=== PATIENT | female | born 1935 | race Asian ===

== ENCOUNTER 2016-11-08 15:56 | Emergency (ER) | payer OTHER, MEDICARE, BC ==
--- NOTE | ~2016-11-08 | CR150 ---
[facility] A Service of [facility] & [facility] RADIOLOGY TEXT RESULTS PATIENT: YAZAN CRAWFORD LOCATION: [facility] : 34 UNIT #: [id number] AGE: [address]: Juan Christina MD SEX: F ORDER DR: [id number] [facility] [address] [place], [place] [address] [id number] E MR#: [id number] Acc #: [id number] NAME: YAZAN CRAWFORD : 1935 SEX: F STUDY DATE/TIME: 11/08/2016 16:26 UNIT: [facility] ROOM: STUDY DESCRIPTION: CR Hip Min 2 Views Lt Attending Physician: Juan Christina M.D. Ordering Physician: Juan Christina M.D. Primary Care Physician: No Primary Care Physician MEDICAL IMAGING REPORT This report is preliminary unless electronic signature is present EXAM Left hip and pelvis HISTORY 81-year-old female fell backwards yesterday, complains of left hip pain, low back pain, weakness. FINDINGS AP pelvis and frog lateral view of the left hip demonstrates no definite fracture or dislocation. Osteopenia. Degenerative disc disease lower lumbar spine. Calcifications are seen in the left pelvis possibly related to calcified fibroid. Arthritic changes seen in the SI joints. Soft tissues unremarkable. IMPRESSION 1. Osteopenia, no definite acute hip or pelvic fracture. 2. Arthritic changes both SI joints and lower lumbar spine. Dictated by... Slava Brady M.D. THIS IS AN ELECTRONICALLY VERIFIED REPORT Slava Brady M.D. at 11/09/2016 12:28 PM ROXANNA/zac TD: 11/08/2016 21:30 JOB #: [id number] MEDICAL IMAGING REPORT Page 1 of 1 COPY
--- NOTE | ~2016-11-08 | CR181 ---
[facility] A Service of [facility] RADIOLOGY TEXT RESULTS PATIENT: YAZAN CRAWFORD LOCATION: [facility] : 34 UNIT #: [id number] AGE: [address]: Juan Christina MD SEX: F ORDER DR: [id number] [facility] [address] [place], [place] [address] [id number] E MR#: [id number] Acc #: [id number] NAME: YAZAN CRAWFORD : 1935 SEX: F STUDY DATE/TIME: 11/08/2016 16:27 UNIT: [facility] ROOM: STUDY DESCRIPTION: CR Lumbar Spine 2 or 3 Views Attending Physician: Juan Christina M.D. Ordering Physician: Juan Christina M.D. Primary Care Physician: No Primary Care Physician MEDICAL IMAGING REPORT This report is preliminary unless electronic signature is present EXAM Lumbar spine, 3 views. DATE OF EXAM 11/08/2016 INDICATIONS 81-year-old female with back pain after falling yesterday. COMPARISON Comparison with 07/11/2015. FINDINGS There is a compression deformity of L1 which is new compared with the most recent imaging study of the lumbar spine which was from a CT of the abdomen 01/15/2016. There has been a previous vertebroplasty of L2. L3 through L5 vertebral body heights are normal. Multilevel facet arthropathy. Osteopenia. IMPRESSION There is a L1 compression deformity new since January of 2016, but the exact date is indeterminate. If the patient has acute low back pain symptoms referable to this region with tenderness over the L1 area, this is probably an acute fracture. If awaiting clinical management, further imaging evaluation with MRI would be helpful. Dictated by... Adithya Brady M.D. THIS IS AN ELECTRONICALLY VERIFIED REPORT Adithya Brady M.D. at 11/09/2016 9:09 AM ARS/jt [facility] A Service of [facility] RADIOLOGY TEXT RESULTS PATIENT: YAZAN CRAWFORD LOCATION: [facility] : 34 UNIT #: [id number] AGE: [address]: Juan Christina MD SEX: F ORDER DR: TD: 11/08/2016 21:54 JOB #: [id number] MEDICAL IMAGING REPORT Page 1 of 1 COPY
[~2016-11-08 15:56] MED LIST: ARTHRITIS MED; BENADRYL PO; BP MED; BP PILL; CERTAGEN PO; GLUCOPHAGE850 MG PO; HYDROCODONE-APA1 T30 PO; LISINOPRIL PO; LISINOPRIL10 MG PO; LISINOPRIL20 MG PO; LORTAB 10-3251 EACH PO; LORTAB 7.5-5001 TAB PO; MACROBID100 MG PO; MEGESTROL ACETA40 MG PO; METFORMIN HCL500 M1 PO; MIRALAX17 GM PO; OMEPRAZOLE40 MG PO; PERCOCET PO; PREDNISONE PO; PREDNISONE5 M1 PO; REMERON15 MG PO; SENOKOT S1 TAB PO; TOBRADEX ST EYE5 ML OP
== END 2016-11-08 17:50 | disposition home or self-care (01) ==
LOC: CED 15:56
DX: S32.018A Other fracture of first lumbar vertebra, initial encounter for closed fracture (principal); I10 Essential (primary) hypertension; E11.9 Type 2 diabetes mellitus without complications; W01.0XXA Fall on same level from slipping, tripping and stumbling without subsequent striking against object, initial encounter; Y92.9 Unspecified place or not applicable
CPT/HCPCS: 72100; 73502; 82947; 96372; 99284; J1885

== ENCOUNTER → 2016-11-24 | Outpatient (CLI) | payer OTHER, MEDICARE, BC ==
[~2016-11-24] MED LIST changes: +ATIVAN0.5 MG PO; +DEXAMETHASONE4 M1 PO; +HALDOL0.5 MG PO; +HYDROCODON-ACE1 EA11 PO; +LOPERAMIDE HCL2 M1 PO; +MAPAP PO; +OMNICEF250 MG/5 M PO; +PRINIVIL10 MG PO; +SENNA8.6 M1 PO
--- NOTE | ~2016-11-24 | MR113 ---
[facility] A Service of [facility] & [facility] RADIOLOGY TEXT RESULTS PATIENT: YAZAN CRAWFORD I [facility] : 34 UNIT #: [id number] AGE: [address]: Olu Liz MD SEX: F ORDER DR: [id number] [facility] [address] [place], [place] [address] [id number] O MR#: [id number] Acc #: [id number] NAME: YAZAN CRAWFORD : 1935 SEX: F STUDY DATE/TIME: 11/24/2016 13:28 UNIT: [facility] ROOM: STUDY DESCRIPTION: MR Lumbar Wo Contrast Attending Physician: Olu Liz M.D. Ordering Physician: Olu Liz M.D. Primary Care Physician: Paty Dunbar M.D. MRI CENTER REPORT This report is preliminary unless electronic signature is present. EXAM MRI of the lumbar spine without contrast dated 11/24/2016. COMPARISON MRI lumbar spine without contrast dated 11/18/2015. HISTORY Patient fell backwards at home 2 weeks ago. Low back pain ever since. History of lumbar surgery 2014. FINDINGS Multisequence multiplanar imaging of the lumbar spine was obtained without contrast. There is a compression fracture of L1 vertebral body, which is new when compared to the previous study from last year (11/18/2015). There is mild retropulsion of bony fragment into the canal with borderline-sized to mild canal stenosis. There is a compression deformity of L1 with about 50% maximal vertebral body height loss. There are edematous and sclerotic bony changes at this level. No history of kyphoplasty is given. The compression deformity was also noted in the previous plain films from 11/08/2016. There is inferior endplate developing Schmorl node at L2 with loss of vertebral body height. Kyphoplasty changes are noted at L2, also seen on the prior plain films and MRI lumbar spine study. Degenerative disc disease is noted at multiple levels of the lumbar spine. Conus terminates at L1-2. Conus is slightly flattened due to the retropulsion of fragments at the level of L1 into the canal. No well-defined cord signal change in the tip of the conus could be clearly seen. Increased T2 signal multiple renal lesions are noted bilaterally with a relatively larger ones in the superior left kidney measuring 2 cm. There is a small increased T2-signal lesion in the posterior segment of the right lobe of the liver measuring about 4 mm. It is close to the periphery of the STS. [facility] A Service of [facility] RADIOLOGY TEXT RESULTS PATIENT: YAZAN CRAWFORD I LOCATION: [facility] : 34 UNIT #: [id number] AGE: [address]: Olu Liz MD SEX: F ORDER DR: liver. The renal and liver lesions are incompletely characterized on the current study. Refer to CT abdomen with contrast from 01/15/2016. T12-L1: Disc osteophyte complex with a fracture of the A1 vertebral body and retropulsion of fragments into the canal causing moderate canal stenosis. There is flattening of the conus, particularly seen on image 37 of series 6 and 7. Mild bilateral neural foraminal encroachment is seen with mild to moderate bilateral facet changes. Interval worsening. L1-2: Disc osteophyte complex which is asymmetrically prominent in bilateral foraminal to extraforaminal regions. It is more prominent in the left. Mild to moderate bilateral facet hypertrophic changes are noted with borderline-sized to mild canal stenosis. Mild left lateral recess encroachment. Mild right and mild to moderate left neural foraminal narrowing are seen. Stable to slightly worse. L2-3: Disc osteophyte complex with mild bilateral facet hypertrophic changes, moderate canal stenosis, mild left lateral recess encroachment and mild inferior bilateral neural foraminal narrowing. Stable. L3-4: Disc osteophyte complex which is asymmetrically prominent in the left foraminal to extraforaminal region with mild bilateral neural foraminal narrowing, worse on the left. Severe right and mild to moderate left facet hypertrophic changes are noted with moderate to severe canal stenosis. Stable. L4-5: Disc osteophyte complex which is asymmetrically prominent in bilateral foraminal to extraforaminal region. Moderate to severe bilateral facet hypertrophic changes are noted with severe canal stenosis. Mild to moderate right and moderate to severe left lateral recess stenosis are noted with mild to moderate bilateral neural foraminal narrowing. Stable. L5-S1: Disc osteophyte complex with mild right and moderate left facet hypertrophic change. Mild bilateral lateral recess stenosis is noted with mild bilateral neural foraminal narrowing, worse on the left. Stable. IMPRESSION 1. There is interval new compression fracture of L1 vertebral body when compared to the previous MRI from last year. This compression fracture was also seen on the plain films from 11/08/2016. It has bone edema with some sclerotic bony compression changes and mild retropulsion of fragment posteriorly into the canal contributing to moderate canal stenosis and flattening of the conus. These findings are worse when compared to the previous study. 2. Degenerative changes are noted at multiple levels of the lumbar spine, predominantly stable given differences in slice selection. 3. Increased T2-signal lesions in the bilateral kidneys and a small lesion in the posterior segment of the right lobe of the liver are STS. [facility] A Service of [facility] RADIOLOGY TEXT RESULTS PATIENT: YAZAN CRAWFORD I LOCATION: [facility] : 34 UNIT #: [id number] AGE: [address]: Olu Liz MD SEX: F ORDER DR: incompletely characterized on the current study. Refer to recent CT abdomen with contrast. Dictated by... Gualberto Browne M.D. THIS IS AN ELECTRONICALLY VERIFIED REPORT Gualberto Browne M.D. at 11/25/2016 2:59 PM CPR/jeffry TD: 11/24/2016 18:45 JOB #: [id number] MRI CENTER REPORT Page 1 of 1 COPY
== END | disposition home or self-care (01) ==
LOC: CMRI 12:58
DX: M51.36 Other intervertebral disc degeneration, lumbar region (principal); M48.56XA Collapsed vertebra, not elsewhere classified, lumbar region, initial encounter for fracture; M47.816 Spondylosis without myelopathy or radiculopathy, lumbar region; N28.89 Other specified disorders of kidney and ureter; K76.9 Liver disease, unspecified; M48.06 Spinal stenosis, lumbar region
CPT/HCPCS: 72148

== ENCOUNTER 2017-01-01 16:21 | Inpatient (IN) | payer MEDICARE, BC ==
--- NOTE | ~2017-01-01 | A ---
[facility] Nutrition Therapy DATE: 01/02/17 Patient: YAZAN CRAWFORD Physician: DANIEL Address: [address] Room/Bed: [address] [place] [address], Zip: [place] [address] Admit Date: 01/01/17 Date of : 34 Height: 5 0 Weight: 72 33 NUTRITIONAL ASSESSMENT: REASON: Nutrition consult, low BMI, 1 point malnutrition risk score re: eating poorly Admitting Dx: 81 y/o female admitted with acute delirium, not eating/drinking at home PMH: DM, HTN, dementia, gastritis, errosive esophagitis, colon polyps Anthropometrics: Ht: 60", Wt: 32.7 kg, BMI: 14.1 (underweight) Labs: K+ 3.3, glucose POC 93-160, A1C pending, Na WNL, no Mg/Phos Meds: Dexamethasone, Zofran, Novolog (low SSI), PPI I/O & Bowel function: Last BM unknown Skin Integrity: Bruises noted, no edema Estimated Nutrition Needs: [id number] kcals/day (35-40 kcals/kg) 39-49 g protein/day (1.2-1.5 g/kg) Fluids consistent with kcal needs or per MD Assessment: Chart reviewed, events noted. Patient speaks Arabic, is on room air. See PMH as stated above. RD consulted to assess, patient is clinically underweight and has stopped eating/drinking. RD last assessed on 01/23/16, recorded weight was 101 lbs at this time, however the patient's ex-huband who accompanied her to the hospital reports a 60-80 lb weight loss in the past year. The patient's son a year ago and she has not eaten or drank much since that time. Apparently she is in hospice care at home due to FTT, however the exact details of this is unclear. Inpatient hospice to assess the patient today. She has a hx of dementia and is confused, disoriented and does not answer questions appropriately. She is on a regular diet, UTILIZATION SPECIALIST noted she did not really participate in their evaluation and they did not leave any dietary recommendations in their note. Based on the patients weight loss and poor prolonged oral intake she does qualify for severe PCM, however I think her weight loss is more consistent with a 30 lb weight loss over the past year vs 60-80 lbs as reported by her ex- based on past weights (29% body weight loss; severe). The patient is sleeping at this time and I am unable to perform a physical assessment. See recs below, will follow hospital course. Dx: Severe protein calorie malnutrition r/t lack of appetite, mental status, clinical condition AEB > 20% body weight loss in 1 year, prolonged poor oral intake < 75% energy needs for > 1 month, BMI 14.1. [facility] Nutrition Therapy DATE: 01/02/17 Patient: YAZAN CRAWFORD Physician: DANIEL Address: [address] Room/Bed: [address] [place] [address], Zip: [place] [address] Admit Date: 01/01/17 Date of : 34 Height: 5 0 Weight: 72 33 Intervention: Diet per UTILIZATION SPECIALIST/MD, ONS if desired, EN if consistent with GOC, hospice c/s Monitoring, Evaluation and Goals: 1. PO intake > 50% of meals vs for pleasure. 2. Prevent further unintentional weight loss. 3. Promote regular BM's. 4. Lytes, glucose WNL. Monitor: Per protocol, criteria to determine if above goals met Recommendations: 1. PO diet per UTILIZATION SPECIALIST/MD, agree with regular diet/no restrictions as tolerated. Appreciate staff/family to encourage PO intake. If desired, order Ensure shakes TID if the patient is appropriate for thin liquids (available in chocolate, vanilla or strawberry). If A1C is elevated she may benefit from Glucerna shakes instead. 2. Replace lytes prn. Will follow up to check A1C lab (is pending at this time). Optimize insulin regimen to promote adequate blood glucose control. 3. Hospice to evaluate. 4. Please weigh q 3 days for monitoring purposes, as the patient is underweight. 5. Severe protein calorie malnutrition diagnosed by RD based on weight loss and prolonged poor oral intake. 6. If enteral nutrition is consistent with the patient's goals of care suggest placing DHT and running nocturnal feeds with Jevity 1.5 @ 55 ml x 12 hours (8p-8a) to provide 990 kcals (80% of estimated needs), 42 g protein (95% estimated needs), 502 ml water. Continue oral diet as tolerated per UTILIZATION SPECIALIST for pleasure. 7. Please consult or call RD with further nutritional needs @ [phone]. RD will follow hospital course Mild-moderate nutrition risk Respectfully, [facility] Nutrition Therapy DATE: 01/02/17 Patient: YAZAN CRAWFORD Physician: DANIEL Address: [address] [place] [address] Room/Bed: [address] [place] [address], Zip: [place] [address] Admit Date: 01/01/17 Date of : 34 Height: 5 0 Weight: 72 33 Diana Lucas, SILVINA, LD [employer] [facility] [employer] cc: client file
--- NOTE | ~2017-01-01 | HP ---
Unit #: [id number] #: [id number] Patient: YAZAN CRAWFORD I [id number] [address] [place], [place] [address] [id number] I MR#: [id number] NAME: YAZAN CRAWFORD I. ROOM: 328 Age: 81 Sex: F Admission Date: 01/01/2017 : 1935 Attending Physician: Cailin Martines M.D. Primary Care Physician: Paty Dunbar M.D. HISTORY AND PHYSICAL REASON FOR ADMISSION Patient found in acute delirium, not eating at home. HISTORY OF PRESENT ILLNESS The patient is an 81-year-old female, of [place] descent, who was accompanied by her ex-. He tells me, secondary to patient being essentially nonverbal, that he went to go wake up his ex- and she appeared to be unconscious. He subsequently called EMS services. Upon their arrival, the patient was given IV fluids and she perked up, began speaking a few words, albeit they were in [place]. However, they elected to bring the patient to the hospital. Ex- also tells me the patient has been placed in hospice care apparently by her primary care physician, Dr. Dunbar, for failure to thrive. Apparently, a year ago the patient's son . The patient, afterwards, stopped eating and/or drinking, has began losing weight, approximately 60-80 pounds. Ex- also tells me patient was recently diagnosed with a compression fracture, treated as an outpatient by Dr. Liz in November of 2016, was not a surgical candidate and was told at that time the patient only had three months to live. Ex- is not entirely clear if the patient has any form of cancer or if there is any other imminent reason for compromise. However, he tells me that hospice has been following the patient. When asked why patient returned to the hospital despite hospice care, patient's ex- tells me that he was instructed by hospice services to call 911. The patient, upon arrival here, underwent routine laboratory studies including an ammonia level which came back normal, a CT head showing no acute process, urine drug screen showing positive opioids. Urinalysis was positive and suspicion for UTI was subsequently made. The patient is now being admitted secondary to acute delirium, dehydration, presumed as well as urinary tract infection. Her hemoglobin on admission is 11.7 and her creatinine on admission is 0.6 although she has significantly diminished muscle mass. This most likely is a contributing factor. Also noted, is the patient's blood sugar is 380 on admission. She does have an underlying history of diabetes. It is unclear if the patient is Unit #: [id number] #: [id number] Patient: YAZAN CRAWFORD I actually taking her medications or not. PAST MEDICAL HISTORY 1. Recent diagnosis of failure to thrive and/or currently under hospice care for unclear details. 2. Type 2 diabetes. 3. Hypertension. 4. Erosive esophagitis. 5. Gastritis. 6. Colon polyps. Dr. Scott sees as an outpatient. 7. Dementia on prior hospital admission in 2015. Was determined by Dr. Fernandez not to be able to make her own medical decisions. PAST SURGICAL HISTORY 1. Prior history of hysterectomy. 2. Back surgery - I am not sure if it is kyphoplasty. HOME MEDICATIONS 1. Remeron. 2. Multivitamins. 3. Lisinopril. 4. Metformin. 5. Megace. ALLERGIES No known drug allergies. FAMILY HISTORY Reviewed and noncontributory or non-pertinent. SOCIAL HISTORY No alcohol use, no tobacco use, no illicit drug use. REVIEW OF SYSTEMS Please see HPI. Twelve point otherwise negative except for those positives noted in the HPI. The patient, herself, is a very poor historian and the majority of history/review of systems has been elicited after discussion with the patient's ex- who is present at bedside. PHYSICAL EXAMINATION VITAL SIGNS: Temperature 98.7, pulse 112, respiratory rate 15, blood pressure 180/112. GENERAL APPEARANCE: The patient is a very frail 81-year-old female lying in no acute distress. HEAD EXAM: Atraumatic, normocephalic. EAR EXAM: Tympanic membranes do not reveal any erythema or injection. NECK EXAM: Supple. CVS: S1, S2 tachycardic without murmur. RESPIRATORY: Coarse breath sounds are noted bilaterally. GI/ABDOMEN: Scaphoid abdomen, nontender. EXTREMITIES: Lower extremity exam - wasted lower extremities noted. No calf tenderness. No edema. NEUROLOGICAL EXAM: The patient is A and O x0. She is essentially nonverbal. She is noted to have very poor dentition. DIAGNOSTIC STUDIES LABORATORY: Initial laboratory studies - please see above. Unit #: [id number] #: [id number] Patient: YAZAN CRAWFORD I ER COURSE The patient received 2 L of normal saline as well as Rocephin 1 g IV x1. INITIAL ADMISSION DIAGNOSES 1. Acute delirium. 2. Presumed urinary tract infection. 3. Failure to thrive. 4. Recent back fracture/compression fracture, details unclear. 5. Dementia, likely moderate to severe. 6. Diabetes with elevated blood sugar. 7. History of hypertension. PLAN Admission to telemetry floor. Hospice consult. IV fluids, Rocephin until urine cultures are obtained. Nutrition consult, speech consult, PT/OT evaluation. It is unclear to me what patient's actual clinical diagnosis is for hospice care. The patient's ex- is not clear why hospice is following. He is also not clear why patient was actually brought back to the hospital. At this point in time, we will consult their services. Will try to obtain previous records. Will try to review with other family members to ascertain further plan of care. Perhaps consideration may be given for CT chest, abdomen, pelvis to rule out underlying occult malignancy or certainly, with the patient's son passing away, this may be ultimately be a contributing factor to her severe demise. Again, details are not clear to me but for now and overnight, she will be placed on symptom management until more details are available. Dictated by Cailin Martines M.D. AMEYA/sunny TD: 01/02/2017 05:01 JOB #: [id number] HISTORY AND PHYSICAL Page 1 of 1 X Cailin Martines MD X HISTORY AND PHYSICAL
--- NOTE | ~2017-01-01 | DS ---
Unit #: [id number] #: [id number] Patient: YAZAN CRAWFORD I [id number] [address] [address] [id number] I MR#: [id number] NAME: YAZAN CRAWFORD I. ROOM: [facility] Age: 81 Sex: F Admission Date: 01/01/2017 : 1935 Discharge Date: 01/02/2017 Attending Physician: Dallin Doty M.D. Primary Care Physician: Paty Dunbar M.D. DISCHARGE SUMMARY DISCHARGE DIAGNOSES 1. Acute delirium on top of dementia. 2. Citrobacter freundii with ramirez sensitivity urinary tract infection. 3. Failure to thrive, under hospice care. 4. Recent back fracture with compression fracture. 5. History of diabetes. 6. Essential hypertension. 7. History of erosive esophagitis. MECHANICAL TECHNOLOGIST Hospice. PROCEDURES None. IMAGING Chest x-ray on 01/01/17. Impression - no acute findings and no active disease. CT head without contrast 01/01/17. Impression - no acute findings. Generalized cerebral and cerebellar cortical atrophy and chronic ischemic changes. LABORATORY When assessed here, BMP - glucose 86, BUN 14, creatinine 0.3, sodium 141, potassium 3.3, chloride 108, CO2 25, calcium 8.9, magnesium 1.7, ammonia level was 12, B12 of 477, folate of 17.6. CBC with WBC of 9.2, RBC 3.91, hemoglobin 12.0, hematocrit 36.3, MCV 92.7, MCH 30.7, MCHC 33.1, RDW 15.4, platelets of 273, MPV 6.8. Urine culture eventually grew Citrobacter freundii. HOSPITAL COURSE The patient is an 81-year-old female with past medical history of failure to thrive, dementia at baseline, essential hypertension, diabetes, multiple compression fractures, erosive esophagitis, was brought to the emergency department by her ex- due to patient was found with reduced responsiveness. The patient is predominantly Georgian speaking but does speak Anguillan. Her , who is a Georgian , speaks Anguillan fluently as his primary language and speaks some Georgian. Please note, the patient's son had about a year ago due to heroin overdose. Since that time, the patient has had fluctuating delirium. She has not been eating well nor drinking well at home, has lost about 60 to 80 pounds. Unit #: [id number] #: [id number] Patient: YAZAN CRAWFORD I Recently diagnosed with compression fracture. Seen as outpatient by Dr. Liz in November of 2016 and was deemed not to be a surgical candidate. The patient was placed under hospice care due to failure to thrive. I actually have spoken with patient's hospice nurse as well who states that patient's has been difficult to educate in terms of patient's chronic medical problems with dementia with failure to thrive as he does not fully understand the diagnosis and prognosis of the patient with dementia and, as they progress, they will become more and more delirious and the first evident site is reduced oral intake with subsequently leading to failure to thrive. However, patient is under hospice care for this very reason. The patient's ex- tells me that they live in the same household in two separate rooms and, here recently, patient has been speaking more about her late parents and actually calls her ex- "father." The patient has also been more confused at night. She does have a hospital bed at home but she is climbing out of bed. The patient's ex- has been working with hospice for these problems. On the day of admission, patient was found to be somnolent and not responding very well. Please note that even under the care of hospice the patient is a Full Code. Therefore, when patient's called hospice, he was instructed to call 911 and she was brought to the emergency department. In the emergency department, she was found to have significant UTI and she had received IV fluid as well as Rocephin. She was admitted under acute delirium and UTI as well as failure to thrive, mainly to get clarification from hospice as to patient's goal of care. The patient did receive IV Rocephin. Eventually, urine culture grew Citrobacter freundii sensitive to cefepime. The hospice nurse, who came out to evaluate the patient, did say that the patient seems more alert on the following day than she was at home. At the time of my assessment, patient is still nonverbal and grimaces to pain but would not open her eyes or talk to me. The patient's ex- main concern for her at this time is that she is not eating and he is actively trying to feed her to eat. It is my clinical assessment that this is a patient who, baseline, has dementia due to the loss of her one and only son and has fluctuating delirium and this has likely worsened with the UTI but, again, patient's baseline medical problem is dementia with failure to thrive which is the reason for her admission under hospice care. The patient's ex-, although does not fully understand the prognosis of demented patients and the progression of disease but, at some point, he does understand why patient would not be under hospice care. The patient has no other children, no other family. Therefore, her ex- is the one person who is making all of the medical decisions. She has other grandchildren but they are all under 18 years of age. The patient's ex-'s one concern is that she is not eating. If patient is brought back to the emergency department, I would highly recommend the patient be admitted to inpatient hospice as this is a case of somebody who has already given a life expectancy of less than three months due to her dementia with fluctuating delirium and has failure to thrive. If her dementia/delirium worsen, I would suggest inpatient hospice to adjust her anxiety medicines as needed for delirium. DISCHARGE DISPOSITION Back to home with her as we have discussed with her and he denied needing to go through detention care facility with [facility]. He believes that he can care for her at his home and that he will continue to care for her. I applaud his edmondson cause. Discharge is back to home under hospice care. I will leave hospice to decide antibiotic usage for this patient. I find no reason to give her antibiotics. Unit #: [id number] #: [id number] Patient: YAZAN CRAWFORD I DISCHARGE FOLLOWUP Follow up with hospice. DISCHARGE MEDICATIONS Include: 1. Resume back to all of her prior medications under hospice care, unchanged. 2. Haldol 1 mg orally every six hours as needed for agitation or psychosis. 3. Ativan 0.5 mg orally every six hours as needed for agitation or anxiety. 4. Hydrocodone with acetaminophen 5/325 orally every four hours as needed for pain. 5. Tylenol 650 mg liquid every four hours as needed for mild pain. 6. Lisinopril 10 mg orally daily. 7. Dexamethasone 4 mg orally daily. 8. Senna 6.8 mg orally twice daily as needed for constipation. 9. Remeron 15 mg orally daily at bedtime as needed for mood or appetite. Dictated by... Vi Bazzi PA-C for Cris Maciel/sunny TD: 01/04/2017 09:17 JOB #: [id number] DISCHARGE SUMMARY Page 1 of 1 X X DISCHARGE SUMMARY
--- NOTE | ~2017-01-01 | CT71 ---
[facility] A Service of [facility] RADIOLOGY TEXT RESULTS PATIENT: YAZAN CRAWFORD I LOCATION: [facility] : 34 UNIT #: [id number] AGE: [address]: Cailin Martines MD SEX: F ORDER DR: [id number] [facility] [address] [place], [place] [address] [id number] E MR#: [id number] Acc #: [id number] NAME: YAZAN CRAWFORD : 1935 SEX: F STUDY DATE/TIME: 01/01/2017 18:08 UNIT: [facility] ROOM: STUDY DESCRIPTION: CT Head Wo Contrast Attending Physician: Rupert Rios M.D. Ordering Physician: Rupert Rios M.D. Primary Care Physician: Paty Dunbar M.D. MEDICAL IMAGING REPORT This report is preliminary unless electronic signature is present EXAM CT brain without contrast HISTORY Confusion today. No injury. FINDINGS This CT exam was performed with one or more of the following radiation dose reduction techniques: Automatic exposure control, adjustment of mA and/or kV according to patient size, and iterative reconstruction. CT brain without contrast demonstrates [id number] generalized cerebral and cerebellar cortical atrophy and chronic ischemic changes in the deep white matter bilaterally. Small chronic lacunar infarcts in the left lentiform nucleus. No intracranial hemorrhage, mass or edema. IMPRESSION 1. No acute findings. 2. Generalized cerebral and cerebellar cortical atrophy and chronic ischemic changes. Dictated by... Lazaro Bear M.D. THIS IS AN ELECTRONICALLY VERIFIED REPORT Lazaro Bear M.D. at 01/01/2017 10:25 PM DFL/psc TD: 01/01/2017 20:39 JOB #: [id number] MEDICAL IMAGING REPORT [facility] A Service of [facility] RADIOLOGY TEXT RESULTS PATIENT: YAZAN CRAWFORD I LOCATION: [facility] : 34 UNIT #: [id number] AGE: [address]: Cailin Martines MD SEX: F ORDER DR: Page 1 of 1 COPY
--- NOTE | ~2017-01-01 | EKG ---
PATIENT: YAZAN CRAWFORD UNIT #: [id number] Ventricular Rate: 99 BPM Atrial Rate: 99 BPM P-R Interval: 140 ms QRS Duration: 64 ms Q-T Interval: 336 ms QTC Calculation(Bezet): 431 ms P [place]: 57 degrees Calculated R [place]: -24 degrees Calculated T [place]: 101 degrees Diagnosis Line: Normal sinus rhythm Diagnosis Line: Septal infarct , age undetermined Diagnosis Line: ST and T wave abnormality, consider lateral ischemia Diagnosis Line: Abnormal ECG Diagnosis Line: When compared with ECG of 17-MAR-2016 14:14, Diagnosis Line: Septal infarct is now Present Diagnosis Line: Nonspecific T wave abnormality now evident in Diagnosis Line: Lateral leads Diagnosis Line: Confirmed by SIENNA ESCOBAR MD ([id number]) on Diagnosis Line: 01/02/2017 8:10:03 AM INTERPRETING MD: SHAWN ULRICH
--- NOTE | ~2017-01-01 | MAL ---
[facility] Nutrition Therapy DATE: 01/02/17 Patient: YAZAN CRAWFORD Physician: DANIEL Address: [address] Room/Bed: [address] [place] [address], Zip: [place] [address] Admit Date: 01/01/17 Date of : [birth year] Height: 5 0 Weight: 72 33 PHYSICAL MALNUTRITION ASSESSMENT Energy Intake, Chronic Illness Severely reduced: </=50% needs for >/=1 month Energy Intake Comment: Prolonged poor oral intake x 1 year, reported to not be eating or drinking at home Weight Loss, Chronic Illness Severe: >20% past 1 year Weight Loss, Comment: Estimated 29% body weight loss x 1 year Physical Findings Comment: Unable to perform physical assessment at this time Malnutrition Survey Results: Malnutrition identified Malnutrition Etiology Summary: Chronic illness severe Malnutrition Survey Comment: See 01/02 assessment for full details and recommendations Respectfully, Diana Lucas RD, LD Food and Nutritional Services [facility] cc: client file
--- NOTE | ~2017-01-01 | CR72 ---
[facility] A Service of [facility] & [facility] RADIOLOGY TEXT RESULTS PATIENT: YAZAN CRAWFORD I LOCATION: [facility] : 34 UNIT #: [id number] AGE: [address]: Cailin Martines MD SEX: F ORDER DR: [id number] [facility] [address] [place], [place] [address] [id number] E MR#: [id number] Acc #: [id number] NAME: YAZAN CRAWFORD : 1935 SEX: F STUDY DATE/TIME: 01/01/2017 17:05 UNIT: [facility] ROOM: STUDY DESCRIPTION: CR Chest Single View Portable Attending Physician: Rupert Rios M.D. Ordering Physician: Rupert Rios M.D. Primary Care Physician: Paty Dunbar M.D. MEDICAL IMAGING REPORT This report is preliminary unless electronic signature is present EXAM Portable chest HISTORY Shortness of air and congestion since yesterday. FINDINGS Cardiac size and pulmonary vascularity are normal. Low lung volumes. Mild elevation of the right hemidiaphragm. No airspace infiltrates or effusions. Mild right lower thoracic curve. IMPRESSION No acute findings and no active disease. Dictated by... Lazaro Bear M.D. THIS IS AN ELECTRONICALLY VERIFIED REPORT Lazaro Bear M.D. at 01/01/2017 10:24 PM DFL/psc TD: 01/01/2017 19:11 JOB #: [id number] MEDICAL IMAGING REPORT Page 1 of 1 COPY
[~2017-01-01 16:21] MED LIST changes: -ATIVAN0.5 MG PO; -DEXAMETHASONE4 M1 PO; -HALDOL0.5 MG PO; -HYDROCODON-ACE1 EA11 PO; -LOPERAMIDE HCL2 M1 PO; -MAPAP PO; -OMNICEF250 MG/5 M PO; -PRINIVIL10 MG PO; -SENNA8.6 M1 PO
[2017-01-01 17:44] LABS: BASOPHIL% 0.1 % (0-2.5); HEMATOCRIT 35.8 % (35.0-45.0); HEMOGLOBIN 11.7 gm/dL (12.0-16.0); LYMPHOCYTE# 0.7 X10e3 (1.0-3.5); LYMPHOCYTE% 7.3 % (17.0-45.0); MEAN CELL VOLUME 94.1 FL (83-96); MEAN CORPUSCULAR HEMOGLOBIN 30.7 PG (28-34); MEAN CORPUSCULAR HGB CONC 32.7 g/dL (30-36); MEAN PLATELET VOLUME 6.8 FL (6.5-11.5); MONOCYTE# 0.2 X10e3 (0-1.0); MONOCYTE% 1.9 % (3.0-12.0); NEUTROPHIL% 90.7 % (40-75); PLATELET COUNT 229 X10e3 (140-420); RED CELL DISTRIBUTION WIDTH 15.1 % (11.0-15.5); WHITE BLOOD COUNT 9.9 X10e3 (4.0-10.5)
[2017-01-01 17:45] LABS: DIFF IND NO
[2017-01-01 17:50] LABS: INR 0.9; PARTIAL THROMBOPLASTIN TIME 21.5 SECONDS (23.5-31.3); PROTHROMBIN TIME (PATIENT) 9.7 SECONDS (9.6-11.5)
[2017-01-01 18:09] LABS: ALBUMIN SERUM 3.5 g/dL (3.5-5.0); BILIRUBIN, DIRECT 0.1 mg/dL (0.0-0.2); BILIRUBIN,INDIRECT 0.8 mg/dL (0.0-0.9); BILIRUBIN,TOTAL 0.9 mg/dL (0.2-2.0); BUN/CREATININE RATIO 36.66; CALCIUM SERUM 9.2 mg/dL (8.4-10.2); CREATININE SERUM 0.6 mg/dL (0.6-1.4); GLOM FILT RATE Estimated 84.9 mL/min (>60); POTASSIUM 4.3 mmol/L (3.5-5.1); PROTEIN TOTAL SERUM 6.1 g/dL (6.0-8.3)
[2017-01-01 19:12] LABS: URINE SOURCE CLEAN CATCH
[2017-01-01 19:18] LABS: URINE APPEARANCE TURBID; URINE BILIRUBIN NEG (NEG); URINE BLOOD 2+ (NEG); URINE COLOR YELLOW; URINE GLUCOSE >1000 MG/DL (NEG); URINE KETONE TRACE (NEG); URINE LEUKOCYTE ESTERASE 3+ (NEG); URINE NITRATE NEG (NEG); URINE PH 6.5 (5-8); URINE PROTEIN NEG (NEG); URINE SPECIFIC GRAVITY 1.019 (1.003-1.035); URINE UROBILINOGEN 0.2 MG/DL (NEG)
[2017-01-01 19:20] LABS: CULTURE INDICATED? YES; URINE BACTERIA AUWI 4+ (NEGATIVE); URINE SQUAMOUS EPITHELIAL CELL NONE SEEN /[HPF]; UWBCS1 AUWI INNUM (0-5)
[2017-01-01 19:38] LABS: ARTERIAL BLD GAS O2 SATURATION 94.8 % (90.0-100.0); ARTERIAL BLOOD GAS CARBOXY HB 1.2 %sat (0.0-9.0); ARTERIAL BLOOD GAS MET HB 0.9 %sat (0.0-2.0); ARTERIAL BLOOD GAS PCO2 34.9 mmHg (35.0-45.0); ARTERIAL BLOOD GAS pH 7.482 (7.350-7.450)
[2017-01-01 19:39] LABS: ARTERIAL BLOOD GAS ALLEN TEST NORMAL; ARTERIAL BLOOD GAS ART SITE RIGHT RADIAL; ARTERIAL BLOOD GAS DELIVERY ROOM AIR; ARTERIAL BLOOD GAS PO2 71.8 mmHg (80.0-100); ARTERIAL DRAW? YES
[2017-01-01 19:40] LABS: AMPHETAMINE NEG (NEG); BARBITURATES NEG (NEG); BENZODIAZEPINES NEG (NEG); COCAINE NEG (NEG); MARIJUANA NEG (NEG); OPIATES POS (NEG); TRICYCLIC ANTIDEPRESSANTS NEG (NEG); U METHADONE NEG (NEG)
[2017-01-01] MEDS ORDERED: SENNA8.6 M1 PO (20:31)
[2017-01-01] MEDS ORDERED: LOPERAMIDE HCL2 M1 PO (20:33)
[2017-01-01] MEDS ORDERED: DEXAMETHASONE4 M1 PO (20:36)
[2017-01-01] MEDS ORDERED: PRINIVIL10 MG PO (20:41)
[2017-01-01] MEDS ORDERED: MAPAP PO (20:41)
[2017-01-01] MEDS ORDERED: HYDROCODON-ACE1 EA11 PO (20:42)
[2017-01-01] MEDS ORDERED: ATIVAN0.5 MG PO (20:44)
[2017-01-01] MEDS ORDERED: HALDOL0.5 MG PO (20:46)
[2017-01-02 09:20] LABS: BASOPHIL% 0.1 % (0-2.5); EOSINOPHIL% 0.2 % (0.0-7.0); HEMATOCRIT 36.3 % (35.0-45.0); LYMPHOCYTE# 1.6 X10e3 (1.0-3.5); MEAN CELL VOLUME 92.7 FL (83-96); MEAN CORPUSCULAR HEMOGLOBIN 30.7 PG (28-34); MEAN CORPUSCULAR HGB CONC 33.1 g/dL (30-36); MEAN PLATELET VOLUME 6.8 FL (6.5-11.5); MONOCYTE# 0.7 X10e3 (0-1.0); MONOCYTE% 7.4 % (3.0-12.0); NEUTROPHIL# 6.9 X10e3 (1.5-7.1); NEUTROPHIL% 75.3 % (40-75); PLATELET COUNT 273 X10e3 (140-420); RED BLOOD COUNT 3.91 X10e (3.90-5.30); RED CELL DISTRIBUTION WIDTH 15.4 % (11.0-15.5); WHITE BLOOD COUNT 9.2 X10e3 (4.0-10.5)
[2017-01-02 09:21] LABS: DIFF IND NO
[2017-01-02 10:13] LABS: BUN/CREATININE RATIO 46.66; CALCIUM SERUM 8.9 mg/dL (8.4-10.2); CREATININE SERUM 0.3 mg/dL (0.6-1.4); FOLATE (FOLIC ACID) 17.6 ng/mL (>5.8); GLOM FILT RATE Estimated 106.7 mL/min (>60); POTASSIUM 3.3 mmol/L (3.5-5.1); PREALBUMIN 30.4 mg/dL (17.0-42.0)
== END 2017-01-02 19:25 | DRG 884 ==
LOC: CED 16:21 → CEDOF 21:30 → C3A PCU 21:30 → CED 21:38 → CEDOF 21:38 → C3A PCU 01-02 00:32 → CEDOF 01-02 00:32 → C3A PCU 01-02 07:40
PROVIDERS: Emergency Medicine
DX: F03.90 Unspecified dementia, unspecified severity, without behavioral disturbance, psychotic disturbance, mood disturbance, and anxiety (principal); F05 Delirium due to known physiological condition; N39.0 Urinary tract infection, site not specified; B96.89 Other specified bacterial agents as the cause of diseases classified elsewhere; E11.9 Type 2 diabetes mellitus without complications; I10 Essential (primary) hypertension; R62.7 Adult failure to thrive; Z79.84 Long term (current) use of oral hypoglycemic drugs; Z51.5 Encounter for palliative care; E86.0 Dehydration; Z86.010 Personal history of colon polyps; Z90.710 Acquired absence of both cervix and uterus
CPT/HCPCS: 36415; 36600; 70450; 71010; 80048; 80076; 80307; 81003; 82140; 82607; 82746; 82803; 82947; 83036; 83605; 83735; 84134; 84443; 85025; 85610; 85730; 87040; 87086; 87088; 87186; 92610; 93005; 94760; 96361; 96365; 99285; C9113; G8996-GN; G8997-GN; J0360; J0696; J1815

== ENCOUNTER 2017-01-16 16:02 | Inpatient (IN) | payer OTHER, MEDICARE, BC ==
--- NOTE | ~2017-01-16 | CR71 ---
[facility] A Service of [facility] RADIOLOGY TEXT RESULTS PATIENT: YAZAN CRAWFORD I LOCATION: [facility] 31001 : 34 UNIT #: [id number] AGE: [address]: Yane Jorge MD SEX: F ORDER DR: [id number] [facility] [address] [place], [place] [address] [id number] E MR#: [id number] Acc #: [id number] NAME: YAZAN CRAWFORD : 1935 SEX: F STUDY DATE/TIME: 01/16/2017 17:35 UNIT: [facility] ROOM: STUDY DESCRIPTION: CR Chest Single View Attending Physician: Juan Christina M.D. Ordering Physician: Juan Christina M.D. Primary Care Physician: Paty Dunbar M.D. MEDICAL IMAGING REPORT This report is preliminary unless electronic signature is present EXAM Portable AP view of the chest COMPARISON January 01, 2017, January 21, 2016 and August 11, 2015. INDICATIONS 81-year-old female with dyspnea for 1 week as well as altered mental status over that time period. History of hypertension. FINDINGS There is calcification of the aortic arch. There is also calcification of the descending thoracic aorta and the visualized suprarenal abdominal aorta. There is normal heart size. Skin fold artifact is seen over the left lower chest. No evidence of pneumothorax, pleural effusion or acute airspace disease. IMPRESSION 1. No acute radiographic abnormality of the chest. Normal heart size. 2. Diffuse calcification of the thoracic aorta. Dictated by... Herb Weeks M.D. THIS IS AN ELECTRONICALLY VERIFIED REPORT Herb Weeks M.D. at 01/17/2017 3:23 PM MADDIE/zac TD: 01/16/2017 22:42 JOB #: [id number] MEDICAL IMAGING REPORT [facility] A Service of [facility] RADIOLOGY TEXT RESULTS PATIENT: YAZAN CRAWFORD I [facility]-01 : 34 UNIT #: [id number] AGE: [address]: Yane Jorge MD SEX: F ORDER DR: Page 1 of 1 COPY
--- NOTE | ~2017-01-16 | CT71 ---
[facility] A Service of [facility] & [facility] RADIOLOGY TEXT RESULTS PATIENT: YAZAN CRAWFORD I LOCATION: A 310-01 : 34 UNIT #: [id number] AGE: [address]: Cailin Martines MD SEX: F ORDER DR: [id number] [facility] [address] [place], [place] [address] [id number] E MR#: [id number] Acc #: [id number] NAME: YAZAN CRAWFORD : 1935 SEX: F STUDY DATE/TIME: 01/16/2017 19:12 UNIT: [facility] ROOM: STUDY DESCRIPTION: CT Head Wo Contrast Attending Physician: Juan Christina M.D. Ordering Physician: Juan Christina M.D. Primary Care Physician: Paty Dunbar M.D. MEDICAL IMAGING REPORT This report is preliminary unless electronic signature is present EXAM CT head, 01/16/17 HISTORY Unresponsive. Hypotensive today. TECHNIQUE CT head performed skull base through vertex without intravenous contrast. Comparison 01/01/17. This CT exam was performed with one or more of the following radiation dose reduction techniques: Automatic exposure control, adjustment of mA and/or kV according to patient size, and iterative reconstruction. FINDINGS The brainstem is unremarkable. The cerebellum and cerebral hemispheres show no acute hemorrhage or acute cortical ischemia. Extensive periventricular and deep white matter tract probable sequelae of chronic microvascular ischemia, unchanged. Chronic lacunar infarcts in the left lentiform nucleus, unchanged. No acute-appearing basal ganglia abnormality. There are probably tiny chronic lacunar infarcts versus dilated perivascular spaces in the right putamen as well. The midline structures are nondisplaced. The ventricles, cisterns and sulci show moderate generalized enlargement consistent with moderate generalized atrophy. Stable. No intra- or extraaxial mass effect or abnormal intracranial fluid collection. Cavernous carotid arterial calcifications. Visualized intraorbital soft tissues unremarkable. The visualized paranasal sinuses and mastoid air cells are clear. IMPRESSION 1. No acute appearing abnormality is seen in the brain. There is no significant change compared to 01/01/17. 2. Chronic findings include: Extensive periventricular and deep white matter tract probable sequelae of chronic microvascular STS. [facility] A Service of [facility] & [facility] RADIOLOGY TEXT RESULTS PATIENT: YAZAN CRAWFORD I LOCATION: [facility] 310-01 : [birth year] UNIT #: [id number] AGE: [address]: Cailin Martines MD SEX: F ORDER DR: ischemia, bilateral chronic lacunar infarcts in the lentiform nuclei, moderate generalized atrophy, extensive vascular calcification. Dictated by... Olu Barakat M.D. THIS IS AN ELECTRONICALLY VERIFIED REPORT Olu Barakat M.D. at 01/19/2017 8:26 AM DEBRA/zac TD: 01/16/2017 23:37 JOB #: [id number] MEDICAL IMAGING REPORT Page 1 of 1 COPY
--- NOTE | ~2017-01-16 | A ---
[facility] Nutrition Therapy DATE: 01/17/17 Patient: YAZAN CRAWFORD Physician: MOLINA Address: [address] Room/Bed: [address] [place] [address], Zip: [place] [address] Admit Date: 01/17/17 Date of : [birth year] Height: 4 11 Weight: 71 32.5 NUTRITIONAL ASSESSMENT: REASON: SEEING PT FOR 6 NUTRITIONAL RISK POINTS RE: WEIGHT LOSS AND LOW BMI, ALSO CONSULT RECEIVED DX: 81 Y.O. FEMALE ADMITTED FOR SEVERE SEPSIS, UTI, KELECHI PMH: FTT, TYPE 2 DM, HTN, ESOPHAGITIS, GASTRITIS, COLON POLYPS, DEMENTIA Anthropometrics: 4'11", WT: 71# (32 KG), BMI 14 Labs: NA+ 153, K+ 3.1. CL- 128, GLU 263, BUN 77, CREAT 2.3, CA++ 5.9, ALB 1.7, HGBa1C 9.5, GFR 19.2 Meds: LOVENOX, CARRIER, ZOFRAN, ROCEPHIN I/O & Bowel function: NONE NOTED. Skin Integrity: REDNESS, BRUISING, DRSG ON RT. NECK Assessment: CHART REVIEWED, EVENTS NOTED. PER RN REPORT, PT WAS ADMITTED TO HOSPITAL AFTER BEING UNRESPONSIVE. PT WAS BROUGT TO HOSPITAL BY HER EX- WHO PROVIDED INFORMATION ABOUT THE PT'S HISTORY. THE PT HAS NOT BEEN AWAKE/ALERT ENOUGH TO SPEAK SINCE ADMIT. RN REPORTS THAT PT RECEIVES HOSPICE CARE AT HOME BUT IS NOT RECEIVING IT WHILE IN HOSPITAL. PER RN/FAMILY REPORT, THE PT HAS LOST ABOUT 60# OVER AN UNKNOWN AMOUNT OF TIME DUE TO DEPRESSION FROM THE OF HER SON. THE PT IS CURRENTLY NPO AND NOT BEEN AWAKE/ALERT ENOUGH TO ATTEMPT EATING YET, PER RN. RD ATTEMPTED TO SPEAK WITH PT BUT PT WAS ASLEEP. RD WILL CONTINUE TO FOLLOW. Dx: UNINTENTIONAL WEIGHT LOSS R/T PMH, LIFE EVENTS, DEPRESSION AEB 60# WEIGHT LOSS PER FAMILY INFORMATION [facility] AND BMI OF 14. Intervention: 1. NPO 2. ADVANCE DIET ONCE MEDICALLY FEASIBLE Monitoring, Evaluation and Goals: 1. ORAL INTAKE; ADVANCE DIET PER SAILING OFFICER, BEGIN TOLERATING >50% OF ALL MEALS 2. WEIGHT; PREVENT FURTHER UNINTENTIONAL WEIGHT LOSS AND PROMOTE GRADUAL WEIGHT GAIN TOWARDS HEALTHY BMI 3. LABS; WNL Recommendations: 1. PER SAILING OFFICER, ADVANCE DIET TO REGULAR DIET [facility] Nutrition Therapy DATE: 01/17/17 Patient: YAZAN Paulino YVETTE Physician: MOLINA Address: [address] Room/Bed: [address] [place] [address], Zip: [place] [address] Admit Date: 01/17/17 Date of : 34 Height: 4 11 Weight: 71 32.5 2. ENCOURAGE ADEQUATE PO INTAKE, PT UNDERWEIGHT 3. IF ENTERAL ACCESS IS GAINED, RD WILL PROVIDE ENTERAL NUTRITION SUPPORT RECOMMENDATIONS RD WILL F/U PER PROTOCOL PT IS AT MODERATE NUTRITIONAL RISK. Respectfully, NURA CHAN, LINUX SYSTEMS ANALYST VALERIE CANNON MS, RD, LD Food and Nutritional Services [facility] cc: client file
--- NOTE | ~2017-01-16 | HP ---
Unit #: [id number] #: [id number] Patient: YAZAN BEAR I [id number] [facility] [address] [facility]. [place] [id number] MR#: [id number] NAME: YAZAN BEAR I. ROOM: 310 Age: 81 Sex: F Admission Date: 01/17/2017 : 1935 Attending Physician: Yane Jorge M.D. Primary Care Physician: Paty Dunbar M.D. HISTORY AND PHYSICAL REASON FOR ADMISSION Failure to thrive. HISTORY OF PRESENT ILLNESS Ms. Bear is an 81-year-old [place]ian female with known dementia, known failure to thrive, who was recently discharged from our facility on 01/02/2017 for evaluation and management of failure to thrive. Patient is unable to give a history. She is unresponsive though she does open her eyes, she does not follow commands and is nonverbal. Her ex- who apparently is her caregiver is not at the bedside. However, per discussion with the ER physician, the patient was discharged from [facility] with Hospice due to failure to thrive from dementia. However, the ex- brought her back to the emergency department because she has been unable to take anything by mouth. Apparently he did not understand or express not understanding that she was going home with comfort measures. I did review the discharge summary from her most recent admission and apparently her ex- was having difficulty understanding her overall poor prognosis. Apparently he also did not understand the reasons for comfort measures. Apparently when he brought her back to the emergency department today he expressed that he wanted everything done for his ex-, however, again the ex- is not present at the bedside to give any history and we are unable to get in touch with him by phone. PAST MEDICAL HISTORY Appears that she has failure to thrive. She recently had a urinary tract infection with Citrobacter. She has type 2 diabetes, hypertension, erosive esophagitis and gastritis. She has had a history of colon polyps. She also has dementia where she was evaluated by psychiatry who deemed that she was not competent to make her own decisions. She has had a history of hysterectomy. She has had some type of back surgery in the past. ALLERGIES None. HOME MEDICATIONS Listed as Remeron 15 mg p.o. daily; Senna twice a day; dexamethasone 4 mg once a day; Tylenol 650 mg as needed for pain; Prinivil 10 mg p.o. daily; hydrocodone/acetaminophen 10/300, although it says 5 mg p.o. every 4 hours as needed; Ativan 0.5 mg p.o. q.6 hours as needed; and Haldol 1 mg p.o. q.6 hours. SOCIAL HISTORY Unit #: [id number] #: [id number] Patient: YAZAN BEAR I Apparently she lives with her ex-. No alcohol. No known tobacco use. FAMILY HISTORY Unobtainable as patient is unable to give a history. REVIEW OF SYSTEMS Unobtainable as patient is unable to give a history. PHYSICAL EXAMINATION VITAL SIGNS: Her current temp was 97.1, which is a rectal temp here in the emergency department. Her pulse is 113 and has been in the 80s during my evaluation. Her respiratory rate was 16. Her blood pressure initially was 77/59 but improved to 96/65. GENERAL APPEARANCE: She is an 81-year-old [place]ian female who is awake; however, she is unresponsives and does not follow commands. She appears to be comfortable and in no acute distress. HEENT: Normocephalic and atraumatic. Her pupils equal, round and reactive to light and accommodation. I am unable to assess extraocular movements. She has poor dentition and her mouth is dry. NECK: Her neck is supple. No JVD or bruits. CHEST: Chest is decreased breath sounds bilateral bases. CARDIOVASCULAR: S1, S2. She has a regular rate and rhythm. ABDOMEN: Abdomen is soft, nontender, nondistended with positive bowel sounds. EXTREMITIES: Show no cyanosis, clubbing or edema. MUSCULOSKELETAL: She moves all four extremities spontaneously. Her muscles are atrophic. SKIN: She has some dry skin over bilateral lower extremities. NEUROLOGIC: I am unable to assess her neurologic exam as she does not follow commands. DIAGNOSTIC STUDIES LABORATORY STUDIES: Her laboratory work included a blood gas with pH of 7.335, pCO2 46.5, pO2 112, this was on 1 1/2 L of nasal cannula. Sodium was 153, potassium 3.1, chloride 128, bicarb 118, BUN and creatinine 17 and 2.3 with a glucose of 263, calcium was 5.9, total protein 3.1, albumin 1.7, total bili 0.8, AST was 11, ALT is 11, alk phos is 21. Lactic acid, which was 1. Her PT/INR was 16.1 and when (1) PTT of 33.4. Her troponin was 0.11. White count was 9.3, H and H is 8.1 and 25.9, with a platelet count of 74, 94 neutrophils, 5 lymphocytes. Tox screen is positive for opiates. Her urinalysis revealed 3+ leukocyte esterase, positive nitrite, 1+ protein, glucose is 250, ketones were trace, 2+ blood, negative bile, 50-100 white blood cells, 4+ bacteria. CARDIOLOGY STUDIES: She had an EKG that showed a normal sinus with a heart rate in the 100s. IMPRESSION Ms. Bear is an 81-year-old [place]ian female with dementia and known failure to thrive, hypertension, who presents with urinary tract infection, dehydration, acute kidney injury, metabolic acidosis, severe protein caloric malnutrition due to failure to thrive, all due to dementia that was all present on admission. PLAN 1. Severe sepsis, severe UTI with acute kidney injury, metabolic acidosis: Family is not at the bedside but apparently the ex- Unit #: [id number] #: [id number] Patient: YAZAN BEAR I told the ER physician that he wants "everything." For now will continue IV fluids and IV antibiotics and will monitor for now, although her overall prognosis is poor. 2. Failure to thrive with acute kidney injury, dehydration, severe protein caloric malnutrition, electrolyte abnormalities including hypernatremia, hypokalemia, and hypocalcemia. The patient is unresponsive though she is awake, she just does not follow commands and is nonverbal. I am unsure what her baseline is. Will go ahead and hydrate her for now. She I unable to take any oral intake, therefore, we will give her medications IV until we can speak to the ex- regarding her management. 3. Dementia. This is the underlying etiology for #1 and #2: I did review the discharge summary and apparently the patient is supposed to be in Hospice and receiving comfort care, which I agree. Her overall prognosis is poor. However, at this time I am unable to get in touch with her caregiver, which is her ex- and per my discussion with the ER physician, it appears that her ex- does not understand that she was under comfort measures with [facility]. I do agree that she needs to continue to be in Hospice care and received comfort measures and that if needed she may benefit from being in the hospital inpatient unit, as opposed to going home with hospice. 4. Hypertension: Will monitor for now. Her BP is actually low due to her severe sepsis and her dehydration, but has improved with IV fluids. 5. Disposition: Again her overall prognosis is poor; however, I do not have anybody here to discuss her current state and we are unable to get a hold of her ex- who was the one who brought her here. Will discuss with my partner regarding further disposition of this patient. Unfortunately the patient continues to be a full code and her prognosis at this time is poor. We will do our best to try to reach the ex- and try to provide comfort for this patient. Dictated by Cris Overton/rebecca TD: 01/17/2017 06:52 JOB #: [id number] HISTORY AND PHYSICAL Page 1 of 1 X Yane Jorge HISTORY AND PHYSICAL
--- NOTE | ~2017-01-16 | EKG ---
PATIENT: YAZAN CRAWFORD UNIT #: [id number] Ventricular Rate: 100 BPM Atrial Rate: 100 BPM P-R Interval: 162 ms QRS Duration: 68 ms Q-T Interval: 328 ms QTC Calculation(Bezet): 423 ms P Newport: 80 degrees Calculated R Newport: 34 degrees Calculated T Newport: 81 degrees Diagnosis Line: Normal sinus rhythm Diagnosis Line: Normal ECG Diagnosis Line: When compared with ECG of 01-JAN-2017 17:25, Diagnosis Line: No significant change was found Diagnosis Line: Confirmed by LESLIE SIMS MD ([id number]) on Diagnosis Line: 01/16/2017 10:56:48 PM INTERPRETING MD: CHARLIE
--- NOTE | ~2017-01-16 | DS ---
Unit #: [id number] #: [id number] Patient: YAZAN CRAWFORD I [id number] [address] [address] [id number] I MR#: [id number] NAME: YAZAN CRAWFORD I. ROOM: 310 Age: 81 Sex: F Admission Date: 01/16/2017 : 1935 Discharge Date: 01/19/2017 Attending Physician: Cailin Martines M.D. Primary Care Physician: Paty Dunbar M.D. DISCHARGE SUMMARY DISCHARGE DIAGNOSES 1. Staph coagulase bacteremia x2: Patient was transiently treated with vancomycin. Infectious disease was consulted who felt that this was likely a contaminate. Therefore, no further antibiotics were needed for this bacteremia. 2. Sepsis secondary to urinary tract infection of Citrobacter freundii transiently treated with Rocephin: Will be discharged with Omnicef for the next five days per infectious disease recommendation. 3. Acute kidney injury secondary to dementia as well as chronic use of ANIKA, resolved at this. 4. Hypoglycemia, resolved with intravenous fluid hydration. 5. Failure to thrive due to severe dementia. 6. Severe dementia: At baseline, patient is confused. 7. Severe protein malnutrition. 8. Essential hypertension. 9. (1) detectable troponin, likely secondary to sepsis. 10. Poor residential prognosis. FREEZER ASSISTANT Dr. Andre - Infectious Disease. PROCEDURES None. IMAGING Chest x-ray on January 16, 2017. Impression - no acute radiographic abnormality of the chest. Normal heart size. Diffuse calcification of the thoracic aorta. CT head on January 16, 2017. Impression - no acute appearing abnormalities seen in the brain. There is no significant change compared to 01/01/17. Chronic findings include extensive periventricular and deep white matter tract, probably sequelae of chronic microvascular ischemia, bilateral chronic lacunar infarcts in the lentiform nuclei, moderate generalized atrophy, extensive vascular calcification. LABS On the day of discharge, the patient's labs include a BMP with glucose of 214, BUN 42, creatinine 1.0, sodium 140, potassium 3.5, chloride 110, CO2 23, calcium 8.1. CBC - WBC of 12.0, RBC 3.60, hemoglobin 11.0, hematocrit 35.0, MCV was 97.2, MCH 30.8, MCHC 31.7, RDW is 15.0, platelets 98, MPV is 10.2. Unit #: [id number] #: [id number] Patient: YAZAN CRAWFORD I MICROBIOLOGY Urine with Citrobacter freundii with ramirez sensitivity. Blood culture - two out of two sets of Staph coagulase negative. Sensitivity is still pending. HOSPITAL COURSE The patient is an 81-year-old female with a past medical history of failure to thrive, dementia at baseline, essential hypertension, diabetes, multiple compression fractures, erosive esophagitis, who was brought to the emergency department by her ex- with unresponsiveness. The patient was hospitalized here on January 02, 2017, due to UTI and failure to thrive. Since her last hospitalization, the patient currently is still active with hospice. Through counseling, the patient's ex- had originally agreed to a DO NOT INTUBATE/DO NOT RESUSCITATE code status with hospice but as patient became more and more unresponsive, with hospice guidance to make patient comfortable and allow for her to have a natural , the patient's ex- had disagreed with this. Therefore, he, himself brought her back to the emergency department for further evaluation. In the emergency department, an attempt was made to admit patient to inpatient hospice to treat her for her symptoms as it seems as though she was actively dying with core body temperature of 95.4, lowest at one point, and had hypoglycemia with glucose as low as 44. The patient's ex- had torn up the DO NOT RESUSCITATE/DO NOT INTUBATE paperwork and stated that he wanted everything done for the patient. Workup in ER revealed that patient has a septic UTI as well as an acute kidney injury. The patient was admitted for IV antibiotic and IV fluid hydration. The patient had remained unresponsive for the most part of her hospitalization. During the last day of the hospitalization, the patient would wake up, open up her eyes and attempt to hit myself and any other providers who would try to assess her although she was too weak to truly illicit any force. I have spoken to both the patient alone as well as I have attempted to speak to patient's ex- alone as well as with his home electronics instructor who was up here visiting about patient's poor prognosis, about her recurrent problems with dementia, UTI, even possibly aspiration pneumonia resulting in unresponsiveness, poor oral intake, failure to thrive and that patient truly is at end of her life and that she should be made comfortable and should be made to pass with dignity. The patient's ex- stated that he did not want that, he could not watch her . If he was given a week with her he would take it, if he was given a day with her he would take that as well. After my discussion between patient's ex- and his electronics instructor, he came back and asked if there was a way to find an official to remarry himself to the patient. I believe that patient's ex- has adjustment disorder and he is unable to allow patient to a natural . During the course of hospitalization, the patient was also found to have Staph coag bacteremia out of both sets of blood cultures. Infectious disease was consulted who felt that blood culture is likely to be a contaminate. The patient was transiently treated with vancomycin at this time under infectious disease recommendation. Patient will be transitioned from Rocephin to Omnicef to continue for the next five days. The patient will be discharged back home with her ex- under hospice care. Again, I have spoken to patient's ex- about patient's poor residential prognosis. He voiced understanding but I truly don't know if he grasps this prognosis or not. Unit #: [id number] #: [id number] Patient: YAZAN CRAWFORD I DISCHARGE ACTIVITY Resume to as was. Patient is chronically debilitating and has a hospital bed at home and her ex- does everything for her. DISCHARGE MEDICATIONS Would go back to the hospice medicine as was prior although patient's , I doubt, gives her any morphine or Ativan per hospice guidance. DISCHARGE MEDICATIONS Discharge med list includes: 1. Tylenol 650 mg orally every for hours as needed for pain. 2. Dexamethasone 4 mg orally daily. 3. Remeron 15 mg orally daily. 4. Haldol 1 mg orally every six hours as needed. 5. Ativan 0.5 mg every six hours as needed. 6. Senna 8.6 mg orally twice daily as needed for constipation. 7. Lisinopril 10 mg orally daily. 8. Hydrocodone with acetaminophen 5 mg every four hours as needed for pain. 9. Omnicef elixir 300 mg orally twice daily for the next five days. I do recommend discontinuing the lisinopril 10 mg orally daily. The patient's blood pressure has been adequate here without the use of any antihypertensives and this would only be contributing to patient's acute kidney injury should she start to have poor oral intake again. This dictation took 45 minutes to include patient education to patient's ex- and to coordinate care. Dictated by... Vi Bazzi PA-C for Cris Pickens TD: 01/20/2017 08:31 JOB #: [id number] DISCHARGE SUMMARY Page 1 of 1 X X DISCHARGE SUMMARY
--- NOTE | ~2017-01-16 | CO ---
Unit #: [id number] #: [id number] Patient: YAZAN CRAWFORD I [id number] [address] [place], [place] [address] [id number] MR#: [id number] NAME: YAZAN CRAWFORD I. ROOM: 310 Age: 81 Sex: F Admission Date: 01/16/2017 : 1935 Attending Physician: Cailin Martines M.D. Primary Care Physician: Paty Dunbar M.D. Consultation Date: 01/18/2017 CONSULTATION REPORT REASON FOR CONSULTATION Two of two positive blood cultures with Gram positive cocci. HISTORY OF PRESENT ILLNESS This is an 81-year-old female who is fairly unresponsive in the room and is unable to provide any history. History is obtained via the chart and also in discussion with the ex-, who is the caregiver, at the bedside. The patient was recently at the hospital and was treated for urinary tract infection/failure to thrive, and was sent home with Hospice care. The patient's ex- reports that they were "doing nothing" and he brought her back to the emergency room when she was more unresponsive. The patient's ex- reports that he feeds her with liquids in her mouth, but it does not sound like the patient has been ambulating or awake for the last several weeks. The patient was admitted through the emergency room for questionable urinary tract infection, continued failure to thrive and now has two of two positive blood cultures for Gram positive cocci in clusters. Infection disease was asked to evaluate for further management. The patient is currently maintained on Rocephin. PAST MEDICAL HISTORY 1. Failure to thrive. 2. Urinary tract infection secondary to Citrobacter. 3. Diabetes. 4. Hypertension. 5. Erosive esophagitis. 6. Gastritis. 7. Colon polyps. 8. Dementia. 9. History of hysterectomy. 10. Back surgery. SOCIAL HISTORY The patient lives with her ex-. She has no alcohol or tobacco abuse or other drug use that is known at this time. ALLERGIES No known drug allergies. CURRENT MEDICATIONS The patient is currently on Rocephin. For further medications, please refer to the patient's MAR. REVIEW OF SYSTEMS Unable to obtain at this time secondary to the patient's mental status. Unit #: [id number] #: [id number] Patient: YAZAN CRAWFORD I PHYSICAL EXAMINATION GENERAL: This is a lethargic female who is minimally able to open her eyes to stimuli. VITALS: Temperature 97.3, pulse 66, blood pressure 98/60, respiratory rate 14. NECK: Supple. LUNGS: Clear and diminished in the bases. HEART: S1 and S2. Regular rate and rhythm. ABDOMEN: Positive bowel sounds and soft. EXTREMITIES: No clubbing, cyanosis or edema. There are no wounds noted. SKIN: The patient does have a groin line in her right femoral vein, placed on admission. DIAGNOSTIC STUDIES IMAGING: CT scan of the head, no acute appearing abnormality in the brain, chronic findings. Chest x-ray shows no acute radiographic abnormalities in the chest. LABORATORY: BUN 97, creatinine 2.5, sodium 153, potassium 5.6, chloride 119, CO2 24, bilirubin 0.8, AST 11, ALT 11, alkaline phosphatase 21, lactic acid 1.0. White blood cell count 12.0, hemoglobin 11.1, hematocrit 35.0, platelets 98. Urinalysis done via clean-catch approach on 01/16/2017 showed white blood cell count 50-100 with positive nitrites. Urine cultures shows less than 60,000 of Citrobacter, blood cultures 2 of 2 at identical times show GPC in cluster. ASSESSMENT This is an 81-year-old female with a history of dementia and recent admission for urinary tract infection and failure to thrive. She returned after being with Hospice. Her ex- reports that they were doing nothing. The patient this admission was admitted. She continues to appear to have some failure to thrive as well as dehydration and question able urinary tract infection. However, I doubt the validity of how the urine was obtained as per the computer it states it was collected via clean catch and this patient is not alert enough to provide an adequate sterile sample. The patient also has some positive blood cultures. She has new lines that were placed in the groin on admission. At this time they were drawn at identical times and suspect that this is most likely contamination as the patient has no significant fever or leukocytosis. RECOMMENDATION Continue Rocephin. Will repeat straight cath, urinalysis and culture. Will repeat blood cultures times two. Will follow the identification of the Gram positive cocci. Will check a serum procalcitonin level. Give vancomycin times one. Check a CBC in the a.m. The patient's overall prognosis appears poor. She is high risk for aspiration pneumonia if the family continues to feed the patient while she is unresponsive. Thank you for allowing us to participate in the care of this patient. Further recommendations to follow pending the patient's clinical course. Dictated by... Jade Sam A.P.R.N. for Unit #: [id number] #: [id number] Patient: YAZAN CRAWFORD M.D. SLS/gz TD: 01/18/2017 11:41 JOB #: [id number] CONSULTATION REPORT Page 1 of 1 X X CONSULTATION REPORT
[~2017-01-16 16:02] MED LIST changes: +ATIVAN0.5 MG PO; +DEXAMETHASONE4 M1 PO; +HALDOL0.5 MG PO; +HYDROCODON-ACE1 EA11 PO; +LOPERAMIDE HCL2 M1 PO; +MAPAP PO; +PRINIVIL10 MG PO; +SENNA8.6 M1 PO
[2017-01-16 16:47] LABS: ARTERIAL BLOOD GAS ART SITE RIGHT RADIAL; ARTERIAL BLOOD GAS CARBOXY HB 0.6 %sat (0.0-9.0); ARTERIAL BLOOD GAS HCO3 24.7 mmol/L; ARTERIAL BLOOD GAS LITER FLOW 1.5; ARTERIAL BLOOD GAS PCO2 46.5 mmHg (35.0-45.0); ARTERIAL BLOOD GAS pH 7.335 (7.350-7.450); ARTERIAL DRAW? YES
[2017-01-16 16:48] LABS: ARTERIAL BLOOD GAS DELIVERY NASAL CANNULA
[2017-01-16 17:03] LABS: POC - CKMB <1.0 ng/mL (0.0-7.9); POC - TROPONIN <0.05 ng/mL (<=0.05)
[2017-01-16 17:16] LABS: INR 1.5; PARTIAL THROMBOPLASTIN TIME 33.4 SECONDS (23.5-31.3); PROTHROMBIN TIME (PATIENT) 16.1 SECONDS (9.6-11.5)
[2017-01-16 17:33] LABS: ALBUMIN SERUM 1.7 g/dL (3.5-5.0); BASOPHIL% 0.1 % (0-2.5); BILIRUBIN, DIRECT 0.1 mg/dL (0.0-0.2); BILIRUBIN,INDIRECT 0.7 mg/dL (0.0-0.9); BILIRUBIN,TOTAL 0.8 mg/dL (0.2-2.0); BUN/CREATININE RATIO 33.47; CREATININE SERUM 2.3 mg/dL (0.6-1.4); GLOM FILT RATE Estimated 19.2 mL/min (>60); HEMATOCRIT 25.9 % (35.0-45.0); HEMOGLOBIN 8.1 gm/dL (12.0-16.0); LYMPHOCYTE# 0.4 X10e3 (1.0-3.5); LYMPHOCYTE% 4.5 % (17.0-45.0); MEAN CELL VOLUME 98.5 FL (83-96); MEAN CORPUSCULAR HEMOGLOBIN 30.7 PG (28-34); MEAN CORPUSCULAR HGB CONC 31.2 g/dL (30-36); MEAN PLATELET VOLUME 10.1 FL (6.5-11.5); MONOCYTE# 0.2 X10e3 (0-1.0); MONOCYTE% 1.8 % (3.0-12.0); NEUTROPHIL# 8.7 X10e3 (1.5-7.1); NEUTROPHIL% 93.6 % (40-75); PLATELET COUNT 74 X10e3 (140-420); POTASSIUM 3.1 mmol/L (3.5-5.1); PROTEIN TOTAL SERUM 3.1 g/dL (6.0-8.3); RED BLOOD COUNT 2.63 X10e (3.90-5.30); WHITE BLOOD COUNT 9.3 X10e3 (4.0-10.5)
[2017-01-16 17:35] LABS: CALCIUM SERUM 5.9 mg/dL (8.4-10.2); DIFF IND YES
[2017-01-16 17:40] LABS: PLATELET ESTIMATE DECREASED (NORMAL); RBC NORMAL YES
[2017-01-16 18:33] LABS: URINE SOURCE CLEAN CATCH
[2017-01-16 18:46] LABS: POC - CKMB 1.3 ng/mL (0.0-7.9); POC - TROPONIN 0.11 ng/mL (<=0.05)
[2017-01-16 18:46] LABS: URINE APPEARANCE CLOUDY; URINE BLOOD 2+ (NEG); URINE COLOR DK YELLOW; URINE GLUCOSE 250 MG/DL (NEG); URINE KETONE TRACE (NEG); URINE LEUKOCYTE ESTERASE 3+ (NEG); URINE NITRATE POS (NEG); URINE PROTEIN 1+ (NEG); URINE SPECIFIC GRAVITY 1.019 (1.003-1.035)
[2017-01-16 18:48] LABS: CULTURE INDICATED? YES; URBCS1 AUWI 0-2 /[HPF] (0-2); URINE BACTERIA AUWI 4+ (NEGATIVE); URINE SQUAMOUS EPITHELIAL CELL NONE SEEN /[HPF]; UWBCS1 AUWI 50-100 (0-5)
[2017-01-16 19:10] LABS: AMPHETAMINE NEG (NEG); BARBITURATES NEG (NEG); BENZODIAZEPINES NEG (NEG); COCAINE NEG (NEG); MARIJUANA NEG (NEG); OPIATES POS (NEG); TRICYCLIC ANTIDEPRESSANTS NEG (NEG); U METHADONE NEG (NEG); URINE BILIRUBIN NEG (NEG)
[2017-01-17 01:14] LABS: CK TOTAL 24 IU/L (26-140)
[2017-01-17 08:56] LABS: MEAN CELL VOLUME 97.2 FL (83-96); MEAN CORPUSCULAR HEMOGLOBIN 30.8 PG (28-34); MEAN CORPUSCULAR HGB CONC 31.7 g/dL (30-36); MEAN PLATELET VOLUME 10.2 FL (6.5-11.5); RED BLOOD COUNT 3.6 X10e (3.90-5.30)
[2017-01-17 08:58] LABS: HEMOGLOBIN 11.1 gm/dL (12.0-16.0)
[2017-01-17 09:28] LABS: CK TOTAL 38 IU/L (26-140)
[2017-01-17 09:32] LABS: BUN/CREATININE RATIO 38.8; CREATININE SERUM 2.5 mg/dL (0.6-1.4); GLOM FILT RATE Estimated 17.3 mL/min (>60); MAGNESIUM 2.4 mg/dL (1.6-3.0)
[2017-01-17 09:35] LABS: CALCIUM SERUM 8.7 mg/dL (8.4-10.2); POTASSIUM 5.6 mmol/L (3.5-5.1)
[2017-01-18 16:30] LABS: URINE APPEARANCE CLOUDY; URINE BILIRUBIN NEG (NEG); URINE BLOOD 1+ (NEG); URINE COLOR YELLOW; URINE GLUCOSE 250 MG/DL (NEG); URINE KETONE TRACE (NEG); URINE LEUKOCYTE ESTERASE 3+ (NEG); URINE NITRATE POS (NEG); URINE PROTEIN NEG (NEG); URINE SPECIFIC GRAVITY 1.015 (1.003-1.035); URINE UROBILINOGEN 0.2 MG/DL (NEG)
[2017-01-18 16:33] LABS: URBCS1 AUWI 0-2 /[HPF] (0-2); URINE BACTERIA AUWI 2+ (NEGATIVE); URINE SQUAMOUS EPITHELIAL CELL NONE SEEN /[HPF]; UWBCS1 AUWI 50-100 (0-5)
[2017-01-19 06:29] LABS: CALCIUM SERUM 8.1 mg/dL (8.4-10.2); GLOM FILT RATE Estimated 52.4 mL/min (>60); POTASSIUM 3.5 mmol/L (3.5-5.1)
[2017-01-19] MEDS ORDERED: OMNICEF250 MG/5 M PO (14:02)
== END 2017-01-19 21:34 | DRG 871 ==
LOC: CED 16:02 → C3A PCU 23:47 → CEDOF 23:47 → CED 01-17 00:13 → CEDOF 01-17 00:13 → C3A PCU 01-17 00:13 → CEDOF 01-17 01:44 → C3A PCU 01-17 01:44
PROVIDERS: Emergency Medicine; Family Medicine; Internal Medicine
DX: A41.9 Sepsis, unspecified organism (principal); G93.41 Metabolic encephalopathy; E43 Unspecified severe protein-calorie malnutrition; N17.9 Acute kidney failure, unspecified; E87.2 Acidosis; E87.0 Hyperosmolality and hypernatremia; E86.0 Dehydration; N39.0 Urinary tract infection, site not specified; Z68.1 Body mass index [BMI] 19.9 or less, adult; R65.20 Severe sepsis without septic shock; E11.649 Type 2 diabetes mellitus with hypoglycemia without coma; Z86.010 Personal history of colon polyps; F03.90 Unspecified dementia, unspecified severity, without behavioral disturbance, psychotic disturbance, mood disturbance, and anxiety; Z90.710 Acquired absence of both cervix and uterus; B96.89 Other specified bacterial agents as the cause of diseases classified elsewhere; Z51.5 Encounter for palliative care; E87.6 Hypokalemia; I10 Essential (primary) hypertension; E83.52 Hypercalcemia
CPT/HCPCS: 36415; 36600; 70450; 71010; 80048; 80076; 80307; 81003; 82550; 82553; 82803; 82947; 83605; 83735; 84484; 85025; 85027; 85610; 85730; 87040; 87077; 87086; 87088; 87186; 93005; 94760; 96360; 96361; 99285; J0696; J1650; J2270; J2405; J3370